=== PATIENT | male | born 1965 | race Caucasian/White ===

== ENCOUNTER → 2018-05-21 | Outpatient (REF) ==
[2018-05-21 16:53] LABS: THYROID STIMULATING HORMONE 2.43 uIU/mL (0.465-4.680)
== END ==
LOC: ZLAB.WCH 15:52
PROVIDERS: Physician Assistant
DX: Z01.89 Encounter for other specified special examinations (principal)

== ENCOUNTER → 2018-07-04 | Outpatient (REF) | LOC: ZLAB.WCH 15:47 | DX: Z01.89 Encounter for other specified special examinations (principal) ==

== ENCOUNTER → 2018-07-16 | Outpatient (REF) | LOC: ZLAB.WCH 15:51 | DX: Z01.89 Encounter for other specified special examinations (principal) | CPT/HCPCS: G0103 ==

== ENCOUNTER → 2018-10-11 | Outpatient (CLI) | payer MEDICARE, BC ==
[2018-10-11 16:56] LABS: HEMOGLOBIN 16.9 g/dl (13.5-18.0); MEAN CELL VOLUME 90 fl (80.0-100.0); MEAN CORPUSCULAR HEMOGLOBIN 29 pg (27.0-31.0); MEAN CORPUSCULAR HGB CONC 32 g/dl (33.0-37.0); MEAN PLATELET VOLUME 10.5 fl (7.4-10.4); PLATELET COUNT 188 K/mm3 (130-400); REDCELL DISTRIBUTION WIDTH-CV 14.4 % (11.5-14.5)
[2018-10-11 16:59] LABS: HEMATOCRIT 52.1 % (42.0-52.0)
[2018-10-11 17:45] LABS: ERYTHROCYTE SEDIMENTATION RATE 5 mm/hr (0-30)
== END ==
LOC: COL.LAB 16:24
PROVIDERS: Orthopaedic Surgery
DX: Z01.812 Encounter for preprocedural laboratory examination (principal); M25.561 Pain in right knee; Z96.651 Presence of right artificial knee joint

== ENCOUNTER → 2018-12-18 | Outpatient (CLI) | payer MEDICARE, BC ==
[2018-12-18 16:23] LABS: HEMOGLOBIN 17.5 g/dl (13.5-18.0); MEAN CELL VOLUME 90 fl (80.0-100.0); MEAN CORPUSCULAR HEMOGLOBIN 30 pg (27.0-31.0); MEAN CORPUSCULAR HGB CONC 33 g/dl (33.0-37.0); MEAN PLATELET VOLUME 9.7 fl (7.4-10.4); PLATELET COUNT 206 K/mm3 (130-400); RED BLOOD COUNT 5.86 M/mm3 (4.20-5.60); REDCELL DISTRIBUTION WIDTH-CV 16.4 % (11.5-14.5)
[2018-12-18 16:34] LABS: HEMATOCRIT 52.8 % (42.0-52.0)
[2018-12-18 17:18] LABS: ERYTHROCYTE SEDIMENTATION RATE 7 mm/hr (0-30)
== END ==
LOC: COL.LAB 15:56
PROVIDERS: Orthopaedic Surgery
DX: M25.562 Pain in left knee (principal)

== ENCOUNTER 2019-03-08 13:18 | Inpatient (IN) | payer MEDICARE, BC ==
[~2019-03-08] VITALS: Ht 182.9 cm; Wt 139.4 kg
[2019-07-31] VITALS (11 sets, daily range): BP systolic 90–142; BP diastolic 50–77; PULSE 73–101; TEMP 97.9–98.6
[2019-07-31] MEDS ORDERED: AMBIEN 10MG10 MG PO (03:20)
[2019-07-31] MEDS ORDERED: ATIVAN 0.50.5 MG/TAB PO (03:20)
[2019-07-31] MEDS ORDERED: HYGROTON 2525 MG/TAB PO (03:22)
[2019-07-31] MEDS ORDERED: PRINIVIL40 MG PO (03:22)
[2019-07-31] MEDS ORDERED: NORCO 325 MG-51 TAB PO (03:23)
[2019-07-31] MEDS ORDERED: LOPRESSOR 550 MG/TAB PO (03:23)
[2019-07-31] MEDS ORDERED: PRIL40 PO (03:24)
[2019-07-31] MEDS ORDERED: ZOFRAN ODT4 MG PO (03:26)
[2019-07-31] MEDS ORDERED: PERC2.5TAB PO (03:26)
[2019-07-31] MEDS ORDERED: DEPO-TESTOS200 MG/M1 IM (03:27)
[2019-07-31] MEDS ORDERED: ULTRAM 50MG TAB50 MG PO (03:28)
[2019-07-31] MEDS ORDERED: VIIBRYD40 MG PO (03:32)
[2019-08-01] VITALS: BP 117/90; PULSE 85; TEMP 98.3
[2019-08-01 04:37] VITALS: BP 146/84; PULSE 93; TEMP 97.1
[2019-08-01] MEDS ORDERED: ASPI325T6 PO (07:39)
[2019-08-01] MEDS ORDERED: NORCO 325 MG-7.1 TAB PO (07:39)
[2019-08-01 07:41] LABS: HEMOGLOBIN 16.6 g/dl (13.5-18.0)
[2019-08-01 07:45] LABS: HEMATOCRIT 53.6 % (42.0-52.0)
[2019-08-01 08:21] VITALS: BP 119/77; PULSE 98; TEMP 98
[2019-08-01 11:58] VITALS: BP 119/67; PULSE 90; TEMP 98.1
== END 2019-08-01 14:40 | disposition home health service (06) | DRG 470 ==
LOC: EDSTATUS 04-30 07:30 → JCC 04-30 07:30 → SDCO 04-30 07:30 → JCC 04-30 12:15
PROVIDERS: ADMIT Orthopaedic Surgery
PROC: 0SRD0JA Replacement of Left Knee Joint with Synthetic Substitute, Uncemented, Open Approach (ICD-10-PCS; principal; 2019-07-31 07:30)
DX: M17.12 Unilateral primary osteoarthritis, left knee (principal)
CPT/HCPCS: A4314; A9284; J0690; J2405; J2704; J7120

== ENCOUNTER 2021-10-12 08:08 | Day surgery (SDC) | payer MEDICARE, BC ==
[~2021-10-12] VITALS: Ht 180.3 cm; Wt 133.3 kg
[~2021-10-12 08:08] MED LIST: AMBIEN 10MG10 MG PO; ASPI325T6 PO; ATIVAN 0.50.5 MG/TAB PO; DEPO-TESTOS200 MG/M1 IM; FLAREX 5 ML5 M1 OP; FLONASE NASAL S16 GM NS; HYGROTON 2525 MG/TAB PO; LOPRESSOR 550 MG/TAB PO; NORCO 325 MG-51 TAB PO; NORCO 325 MG-7.1 TAB PO; PERC2.5TAB PO; PRIL40 PO; PRINIVIL40 MG PO; TYLENOL 325MG325 MG PO; ULTRAM 50MG TAB50 MG PO; VIIBRYD40 MG PO; ZOFRAN ODT4 MG PO
[2021-10-12] MEDS ORDERED: ULTRAM 50MG TAB50 MG PO (09:07)
[2021-10-12] MEDS ORDERED: AMBIEN 10MG10 MG PO (09:07)
[2021-10-12] MEDS ORDERED: ATIVAN 0.50.5 MG/TAB PO (09:07)
[2021-10-12] MEDS ORDERED: PROZAC40 MG PO (09:08)
--- NOTE | 2021-10-12 09:15 | NUR ---
Patient reports feeling nausea. Reports has been feeling this way due to miralax prep. Told patient he could be given zofran prior to procedure once the IV has been started.
[2021-10-12 09:40] VITALS: BP 125/81; PULSE 82; TEMP 98
[2021-10-12 11:05] VITALS: BP 103/69; PULSE 84; TEMP 98
--- NOTE | 2021-10-12 11:05 | NUR ---
Patient back in [facility] from procedure. Patient alert and awake. Report received from BRIJESH Lucero. Patient reports some mild abdominal discomfort. Requested saltines and water. Tolerated both well with no complaint of pain or nausea.
[2021-10-12 11:20] VITALS: BP 105/71; PULSE 88
--- NOTE | 2021-10-12 11:30 | NUR ---
Dr. Lala in to see patient.
[2021-10-12 11:35] VITALS: BP 115/75; PULSE 81
--- NOTE | 2021-10-12 11:50 | NUR ---
Went through discharge instructions with patient. Questions answered. Patient verbalized understanding to education. IV removed with no complications. Patient getting dressed independently.
--- NOTE | 2021-10-12 12:00 | NUR ---
Patient escorted to patient entrance via wheelchair. Patient's son, Nikolas, met at patient entrance. Patient left in the care of his son.
== END 2021-10-12 12:00 | disposition home or self-care (01) ==
LOC: SDCO 08:08
DX: K63.5 Polyp of colon (principal); K62.1 Rectal polyp; K59.00 Constipation, unspecified; R10.84 Generalized abdominal pain; K57.30 Diverticulosis of large intestine without perforation or abscess without bleeding; K64.0 First degree hemorrhoids; I10 Essential (primary) hypertension; F17.210 Nicotine dependence, cigarettes, uncomplicated; F41.9 Anxiety disorder, unspecified; Z79.899 Other long term (current) drug therapy; Z79.891 Long term (current) use of opiate analgesic
CPT/HCPCS: J2405; J2704; J7120